=== PATIENT | female | born 1985 | race African-American/Black ===

== ENCOUNTER 2017-04-27 14:57 | Emergency (ER) | payer MEDICAID, OTHER ==
[2017-04-27] MEDS ORDERED: LORazepam TAB(*) 1 MG PO ONE (16:39)
[2017-04-27] MEDS ORDERED: LORazepam INJ* 2 MG/ML 1 ML VIAL IV PUSH ONE ×2 (16:55→18:35)
[2017-04-27] MEDS ORDERED: LORazepam INJ* 2 MG/ML 1 ML VIAL ONE ×3 (16:56→21:00)
[2017-04-27 16:59] LABS: Hematocrit 41 % (35-47); Hemoglobin 13.4 g/dl (12.0-16.0); Mean Corpuscular HGB Conc 33 g/dl (31-36); Mean Corpuscular Hemoglobin 28 pg (27-31); Mean Corpuscular Volume 87 fL (80-97); Mean Platelet Volume 9 um3 (7.4-10.4); Red Blood Count 4.77 10^6/ul (4.0-5.4); Red Cell Distribution Width 14 % (10.5-15); White Blood Count 12.2 10^3/ul (3.5-10.8)
[2017-04-27 17:00] LABS: Add Diff/Slide Review? Slide Review Added; Comments Flag Yes
[2017-04-27 17:14] LABS: ALT 18 U/L (7-52); AST 17 U/L (13-39); Albumin 4.6 g/dL (3.2-5.2); Alkaline Phosphatase 91 U/L (34-104); Anion Gap 9 mmol/L (2-11); BUN/Creatinine Ratio 11.3 (8-20); Blood Urea Nitrogen 9 mg/dL (6-24); CO2 Carbon Dioxide 25 mmol/L (22-32); Calcium 9.7 mg/dL (8.6-10.3); Chloride 102 mmol/L (101-111); EGFR African American 105.6 (>60); EGFR Non-African American 82.1 (>60); Globulin 3.3 g/dL (2-4); Glucose 114 mg/dL (70-100); Potassium 3.4 mmol/L (3.5-5.0); Sodium 136 mmol/L (133-145); Total Protein 7.9 g/dL (6.4-8.9)
[2017-04-27 17:41] LABS: Acetaminophen < 15 mcg/mL; Alcohol < 10 mg/dL (<10); Salicylate < 2.50 mg/dL (<30)
[2017-04-27 17:56] LABS: TSH (Thyroid Stimulating Horm) 1.96 mcIU/mL (0.34-5.60)
[2017-04-27] MEDS ORDERED: QUEtiapine TAB* 25 MG PO ONE (18:41)
[2017-04-27] MEDS ORDERED: Gabapentin CAP(*) 100 MG PO ONE (19:31)
[2017-04-27] MEDS ORDERED: Nicotine PATCH 21 MG/24 HR* PATCH TRANSDERM ONE (19:36)
[2017-04-27] MEDS ORDERED: Brexpiprazole (NF) 4 MG TAB PO ONE (19:46)
[2017-04-27] MEDS ORDERED: CMCS:Brexpiprazole (NF) 0.5 MG TAB PO ONE (21:00)
[2017-04-27 21:46] LABS: Urine Bacteria Absent (Absent); Urine Bilirubin Negative (Negative); Urine Glucose Negative (Negative); Urine Nitrite Negative (Negative)
[2017-04-27 22:01] LABS: Benzodiazepine Urine Screen Presumptive Positive (None Detect)
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
[2017-04-27 23:29] VITALS: BP 104/39
--- NOTE | 2017-04-28 05:35 | PN ---
Humera Nunes Emily, scribed for Norman Taylor on 04/28/17 at 0520 . Progress Note - Progress Note Date of Service: 04/27/17 Note: SIGN OFF FROM DR. REYES UPON SHIFT CHANGE DISPO: Pt is stable for discharge home. Diagnosis of anxiety and panic attacks The documentation as recorded by the scribeHumera Emily accurately reflects the service I personally performed and the decisions made by , Norman Taylor.
== END 2017-04-27 23:31 ==
LOC: ED 14:57
DX: F41.0 Panic disorder [episodic paroxysmal anxiety] (principal); R07.89 Other chest pain; F17.210 Nicotine dependence, cigarettes, uncomplicated; Z04.8 Encounter for examination and observation for other specified reasons; I10 Essential (primary) hypertension; J45.909 Unspecified asthma, uncomplicated; F32.9 Major depressive disorder, single episode, unspecified; Z88.6 Allergy status to analgesic agent; Z91.040 Latex allergy status; Z91.048 Other nonmedicinal substance allergy status; R45.850 Homicidal ideations
CPT/HCPCS: 36415; 80053; 80307; 80320; 80329; 81003; 81015; 84443; 85025; 93005; 96374; 96376; 99285; A9270-GY; G0480; J2060

== ENCOUNTER 2017-11-11 12:59 | Emergency (ER) | payer OTHER, MEDICAID | END 2017-11-11 14:19 | disposition left against medical advice (07) | LOC: UCCORT 12:59 | DX: M25.511 Pain in right shoulder (principal); M54.9 Dorsalgia, unspecified; Z53.21 Procedure and treatment not carried out due to patient leaving prior to being seen by health care provider ==

== ENCOUNTER 2019-01-10 17:05 | Emergency (ER) | payer OTHER ==
[2019-01-10 17:50] VITALS: BP 167/95
[2019-01-10] MEDS ORDERED: Ibuprofen TAB* 600 MG PO ONE (18:51)
[2019-01-10] MEDS ORDERED: Cyclobenzaprine TAB* 10 MG PO ONE (18:52)
--- NOTE | 2019-01-10 18:56 | UC ---
Back Pain HPI - HPI Summary HPI Summary: 33-year-old woman comes in with a chief complaint of low back pain bilateral leg pain and weakness. Patient has had a history of low back pain that was intermittent over several years. In November patient reports she had no pain and then had a lumbar spinal tap and has had low back pain ever since. Pains been getting worse and it started to spread down through both buttocks into both legs. The left is worse than the right. Patient reports the last 2 weeks she' s had some difficulty controlling her urine with losing urine wall coughing or laughing that she did not have in the past. Also she reports that she'll sit on the toilet and urinate and feeling like she's completely emptied it and when she gets up she'll urinate more. This is also new in the last 2 weeks. Feels like both of her legs are weak. She's feeling numbness on the lateral aspect of the left leg that started today. When the pain first started she was taking ibuprofen which did help with the pain but the ibuprofen the longer helps. - History of Current Complaint Chief Complaint: UCBackPain Stated Complaint: LOW BACK/LEG PAIN Time Seen by Provider: 01/10/19 18:21 Hx Last Menstrual Period: 04/17/15 Pain Intensity: 9 - Allergies/Home Medications Allergies/Adverse Reactions: Allergies Allergy/AdvReac Type Severity Reaction Status Date / Time aspirin Allergy Severe Hives Verified 01/10/19 17:50 Adhesive Tape Allergy Intermediate Rash Verified 01/10/19 17:50 Latex, Natural Rubber Allergy Intermediate Rash Verified 01/10/19 17:50 Home Medications: Home Medications metFORMIN* [Glucophage 500 MG TAB *] 500 mg PO BID 01/10/19 [History Confirmed 01/10/19] PMH/Surg Hx/FS Hx/Imm Hx Previously Healthy: Yes Endocrine History: Diabetes Respiratory History: Asthma - Surgical History Surgical History: Yes Surgery Procedure, Year, and Place: Tubal ligation,. left hand surgery: [facility] 2008. Hysterectomy: 2016. UTERINE ABLATION - Family History Known Family History: Positive: Cardiac Disease - 3 PR father and 2 PR mother , Hypertension, Diabetes, Respiratory Disease, Other - Social History Alcohol Use: Occasionally Substance Use Type: None Smoking Status (MU): Current Every Day Smoker Type: Cigarettes Amount Used/How Often: 7-8 cigarettes daily Length of Time of Smoking/Using Tobacco: 14 yrs Have You Smoked in the Last Year: Yes Household Exposure Type: Cigarettes Review of Systems All Other Systems Reviewed And Are Negative: Yes Constitutional: Positive: Negative Skin: Positive: Negative Eyes: Positive: Negative ENT: Positive: Negative Respiratory: Positive: Negative Cardiovascular: Positive: Negative Gastrointestinal: Positive: Negative Genitourinary: Positive: Other - SEE HPI Motor: Positive: Weakness Neurovascular: Positive: Decreased Sensation Musculoskeletal: Positive: Other: - SEE HPI Neurological: Positive: Weakness, Paresthesia, Numbness, Other - SEE HPI Psychological: Positive: Negative Is Patient Immunocompromised?: No Physical Exam Triage Information Reviewed: Yes Appearance: Well-Appearing, Well-Nourished, Pain Distress - MILD/MODERATE WITH ROM OF LOW BACK AND LEGS Vital Signs: Initial Vital Signs Temp 97.4 F 01/10/19 17:43 Pulse 109 01/10/19 17:43 Resp 16 01/10/19 17:43 BP 167/95 01/10/19 17:43 Pulse Ox 100 01/10/19 17:43 Vital Signs Reviewed: Yes Eye Exam: Normal Eyes: Positive: Conjunctiva Clear Neck: Positive: Supple Respiratory: Positive: No respiratory distress Musculoskeletal: Positive: Other: - Tender to palpation in the low back and also bilaterally through the buttocks bilaterally in the sciatic distribution. Patellar reflexes are 2+ bilaterally. Hip flexion and knee flexion extension elicits back pain bilaterally. Patient reports decreased sensation in the lateral aspect of the left leg. Normal capillary refill. With plantar flexion and dorsiflexion plantar flexion is normal dorsiflexion of the great toe is normal on the right patient reports it does feel weaker than her normal strength. Dorsiflexion on the left great toe toe comes up but then it drops back down patient reports she cannot hold it up due to weakness. Neurological: Positive: Alert Psychological: Positive: Age Appropriate Behavior Skin: Negative: Rashes Back Pain Course/Dx - Course Course Of Treatment: On my examination patient's left great toe dorsiflexion is weekend. She also reports decreased sensation lateral aspect of the left leg. She also reports urinary incontinence that is new in the last 2 weeks. Given these neurologic findings I discussed the case with Dr. Driscoll the neurosurgeon. He recommended further evaluation tonight. I discussed all this with the patient and that the potential for permanent neurologic injury if there is a nerve compression. The closest hospital with neurosurgical coverage for 24 hours is [place] I recommended the patient get evaluated in [place]. In the clinic patient was given ibuprofen 600 mg by mouth and Flexeril 10 mg by mouth and she is going by POV with her . - Differential Dx/Diagnosis Provider Diagnosis: Low back pain, Bilateral lumbar radiculopathy, Leg weakness, bilateral, Urinary incontinence Discharge - Sign-Out/Discharge Documenting (check all that apply): Patient Departure All imaging exams completed and their final reports reviewed: No Studies - Discharge Plan Condition: Stable Disposition: HOME-RECOMMEND TO ED Prescriptions: Cyclobenzaprine TAB* [Flexeril 10 MG TAB*] 10 mg PO TID PRN #15 tab MDD 3 PRN Reason: Pain Patient Education Materials: Urinary Incontinence (ED), Lumbar Radiculopathy ( ED), Back Pain (ED) Referrals: Samara Chambers MD [Primary Care Provider] - Additional Instructions: GO DIRECTLY TO THE EMERGENCY DEPARTMENT FOR FURTHER EVALUATION OF YOU LOW BACK PAIN WITH LEG WEAKNESS AND URINARY INCONTINENCE - Billing Disposition and Condition Condition: STABLE Disposition: Home-Recommend to ED
== END 2019-01-10 19:03 | disposition home health service (06) ==
LOC: UCCORT 17:05
DX: M54.16 Radiculopathy, lumbar region (principal); M62.81 Muscle weakness (generalized); R32 Unspecified urinary incontinence; E11.9 Type 2 diabetes mellitus without complications; Z79.84 Long term (current) use of oral hypoglycemic drugs; F17.210 Nicotine dependence, cigarettes, uncomplicated
CPT/HCPCS: 99212; A9270-GY; G0463

== ENCOUNTER 2019-05-15 12:10 | Emergency (ER) | payer OTHER ==
[2019-05-15 12:49] VITALS: BP 121/70
--- NOTE | 2019-05-15 13:17 | UC ---
Skin Complaint HPI - HPI Summary HPI Summary: 34 yo female the onset of pruritic rash that started yesterday just had her lamictal dose rasied - History of Current Complaint Chief Complaint: UCRash Time Seen by Provider: 05/15/19 12:53 Stated Complaint: HIVES Hx Obtained From: Patient Hx Last Menstrual Period: 04/17/15 Onset/Duration: Sudden Onset, Lasting Hours Timing: Constant Onset Severity: Mild Current Severity: Moderate Pain Intensity: 6 Pain Scale Used: 0-10 Numeric Location: Diffuse Character: Pruritus Aggravating Factor(s): Nothing Alleviating Factor(s): Nothing Associated Signs & Symptoms: Positive: Rash - Allergy/Home Medications Allergies/Adverse Reactions: Allergies Allergy/AdvReac Type Severity Reaction Status Date / Time aspirin Allergy Severe Hives Verified 05/15/19 12:50 Adhesive Tape Allergy Intermediate Rash Verified 05/15/19 12:50 Latex, Natural Rubber Allergy Intermediate Rash Verified 05/15/19 12:50 bee venom protein (honey bee) Allergy Difficulty Verified 05/15/19 12:51 Breathing Home Medications: Home Medications Acetaminophen [Acetaminophen Extra Strength] 1,000 mg PO ONCE PRN 05/15/19 [ History Confirmed 05/15/19] diphenhydrAMINE HCl [Benadryl Allergy] 50 mg PO ONCE PRN 05/15/19 [History Confirmed 05/15/19] lamoTRIgine [Lamotrigine] 75 mg PO DAILY 05/15/19 [History Confirmed 05/15/19] PMH/Surg Hx/FS Hx/Imm Hx Previously Healthy: Yes Endocrine History: Diabetes Cardiovascular History: Hypertension Psychological History: Bipolar Disorder - Surgical History Surgical History: Yes Surgery Procedure, Year, and Place: Tubal ligation,. left hand surgery: [facility] 2008. Hysterectomy: 2013. UTERINE ABLATION - Family History Known Family History: Positive: Cardiac Disease - 3 CO father and 2 CO mother , Hypertension, Diabetes, Respiratory Disease, Other - Social History Alcohol Use: Occasionally Substance Use Type: Marijuana Substance Use Comment - Amount & Last Used: 05/04 Smoking Status (MU): Light Every Day Tobacco Smoker Type: Cigarettes Amount Used/How Often: 7-8 cigarettes daily Length of Time of Smoking/Using Tobacco: 14 yrs Have You Smoked in the Last Year: Yes Household Exposure Type: Cigarettes Review of Systems All Other Systems Reviewed And Are Negative: Yes Constitutional: Positive: Negative Skin: Positive: Rash Eyes: Positive: Negative ENT: Positive: Negative Respiratory: Positive: Negative Cardiovascular: Positive: Negative Gastrointestinal: Positive: Negative Genitourinary: Positive: Negative Motor: Positive: Negative Neurovascular: Positive: Negative Musculoskeletal: Positive: Negative Neurological: Positive: Negative Psychological: Positive: Negative Physical Exam Triage Information Reviewed: Yes Appearance: Well-Appearing, No Pain Distress, Well-Nourished Vital Signs: Initial Vital Signs Temp 98.4 F 05/15/19 12:39 Pulse 70 05/15/19 12:39 Resp 20 05/15/19 12:39 BP 121/70 05/15/19 12:39 Pulse Ox 100 05/15/19 12:39 Vital Signs Reviewed: Yes Eyes: Positive: Conjunctiva Clear ENT: Positive: Hearing grossly normal, Uvula midline, Other - no intraoral lesions. Negative: Pharyngeal erythema, Nasal congestion, Nasal drainage, Trismus, Muffled voice, Hoarse voice Neck: Positive: Supple, Nontender Respiratory: Positive: Lungs clear, Normal breath sounds, No respiratory distress Cardiovascular: Positive: RRR, No Murmur Musculoskeletal: Positive: No Edema Neurological: Positive: Alert Psychological Exam: Normal Skin Exam: Other - macular papular rash..hint of urticaria on breasts/no bullae Course/Dx - Course Course Of Treatment: concern re lamictal rash will see laser operator today - Diagnoses Provider Diagnosis: Acute maculopapular rash Discharge ED - Sign-Out/Discharge Documenting (check all that apply): Patient Departure All imaging exams completed and their final reports reviewed: No Studies - Discharge Plan Condition: Stable Disposition: HOME Prescriptions: hydrOXYzine HCL TAB* [Atarax TAB*] 25 - 50 mg PO QID PRN #20 tab PRN Reason: Itching Patient Education Materials: Acute Rash (ED) Forms: *Work Release Referrals: Samara Chambers MD [Primary Care Provider] - Additional Instructions: To see laser operator now stop lomotrigine - Billing Disposition and Condition Condition: STABLE Disposition: Home
== END 2019-05-15 13:50 | disposition home or self-care (01) ==
LOC: UCCORT 12:10
DX: R21 Rash and other nonspecific skin eruption (principal); E11.9 Type 2 diabetes mellitus without complications; I10 Essential (primary) hypertension; F31.9 Bipolar disorder, unspecified; F17.210 Nicotine dependence, cigarettes, uncomplicated; Z91.030 Bee allergy status; Z88.6 Allergy status to analgesic agent; Z91.09 Other allergy status, other than to drugs and biological substances; Z91.040 Latex allergy status
CPT/HCPCS: 99212; G0463